=== PATIENT | female | born 1950 | race Caucasian/White ===

== ENCOUNTER 2017-01-23 11:45 | Day surgery (SDC) | payer OTHER ==
[~2017-01-23 11:45] MED LIST: VERSED ONE
[2017-01-23] MEDS ORDERED: TETRACAINE 0.5% OPHTH 1 DOSE AFFEYE ONE ×7 (12:00→15:27)
[2017-01-23] MEDS ORDERED: VIGAMOX 0.5% OPHTH 1 DOSE AFFEYE ONE ×5 (12:05→15:41)
[2017-01-23] MEDS ORDERED: PROLENSA OPHTH 1 DOSE AFFEYE ONE (12:16)
[2017-01-23] MEDS ORDERED: ALPHAGAN-P OPHTH 1 DOSE AFFEYE ONE (12:17)
[2017-01-23] MEDS ORDERED: CYCLOGYL 1% OPHTH 1 DOSE OP ONE ×3 (12:18→12:20)
[2017-01-23] MEDS ORDERED: AK-DILATE 2.5% OPHTH 1 DOSE OP ONE ×3 (12:18→12:20)
[2017-01-23] MEDS ORDERED: MYDRIACIL OPHTH 1 DOSE AFFEYE ONE ×3 (12:18→12:20)
[2017-01-23] MEDS ORDERED: NS 500 ML IV 500 ML IV ONE (12:19)
[2017-01-23] MEDS: VERSED ONE ×2 (14:48→15:00)
[2017-01-23] MEDS ORDERED: AK-DILATE 10% OPHTH 1 DOSE AFFEYE ONE ×2 (14:49→15:02)
[2017-01-23] MEDS ORDERED: BETADINE OPHTH SOLN 5% EACHEYE ONE (15:05)
[2017-01-23] MEDS ORDERED: DUOVISC IO ONE ×2 (15:17→15:27)
[2017-01-23] MEDS ORDERED: ADRENALINE CHL INJ IJ ONE ×2 (15:17→15:27)
[2017-01-23] MEDS ORDERED: XYLOCAINE-MPF 1% IJ ONE ×2 (15:17→15:27)
[2017-01-23] MEDS ORDERED: BSS OPHTH (PLAIN) 500 ML with VANCOMYCIN HCL 500 MG VIAL 25 MG, ADRENALINE CHL INJ 1 MG IR ONE ×6 (15:18)
[2017-01-23 15:59] VITALS: BP 158/65
== END 2017-01-23 16:01 | disposition home or self-care (01) ==
LOC: SURG1 11:45
PROVIDERS: ATTEND Ophthalmology
PROC: 08RJ3JZ Replacement of Right Lens with Synthetic Substitute, Percutaneous Approach (ICD-10-PCS; principal; 2017-01-23 17:15)
PROC: 08DJ3ZZ Extraction of Right Lens, Percutaneous Approach (ICD-10-PCS; principal; 2017-01-23 17:15)
PROC: 08J0XZZ Inspection of Right Eye, External Approach (ICD-10-PCS; principal; 2017-01-23 17:15)
DX: H25.11 Age-related nuclear cataract, right eye (principal); H25.041 Posterior subcapsular polar age-related cataract, right eye; H52.221 Regular astigmatism, right eye
CPT/HCPCS: V2797; A4217; J0170; J2250; J3370